=== PATIENT | male | born 1965 | race African-American/Black ===

== ENCOUNTER 2022-09-22 14:08 | Emergency (ER) | payer OTHER ==
[~2022-09-22] VITALS: Ht 172.7 cm; Wt 80.0 kg
[2022-09-22 14:17] VITALS: BP 145/86
[2022-09-22] MEDS ORDERED: CYCL10TA21 MT (17:45)
[2022-09-22] MEDS ORDERED: KETOROLAC 60MG/2ML VIAL IM ONE (17:45)
[2022-09-22] MEDS ORDERED: NAPR500T7 MT (17:45)
== END 2022-09-22 18:39 | disposition home or self-care (01) ==
LOC: ER 14:38
DX: M25.512 Pain in left shoulder (principal); I10 Essential (primary) hypertension
CPT/HCPCS: 99281; J1885

== ENCOUNTER 2024-10-21 21:19 | Emergency (ER) | payer SELFPAY ==
[~2024-10-21] VITALS: Ht 175.3 cm; Wt 82.0 kg
[~2024-10-21 21:19] MED LIST: CYCL10TA21 MT; NAPR-1486 MT
[2024-10-21 21:26] VITALS: O2SAT 98
[2024-10-21] MEDS: LIDOCAINE 5% PATCH TOP SCH (22:43)
[2024-10-21] MEDS: KETOROLAC 15MG/ML VIAL IM ONE (22:45)
[2024-10-21] MEDS ORDERED: NAPR-1176 MT (23:32)
[2024-10-21] MEDS ORDERED: CYCL5TAB3 MT (23:32)
[2024-10-21] MEDS ORDERED: LIDO700A15 TP (23:32)
[2024-10-21 23:41] VITALS: BP 138/87; PULSE 80; RESP 18; TEMP 37.1; O2SAT 98
== END 2024-10-21 23:42 | disposition home or self-care (01) ==
LOC: ER 21:19
DX: M54.50 Low back pain, unspecified (principal); I10 Essential (primary) hypertension; Z79.1 Long term (current) use of non-steroidal anti-inflammatories (NSAID)
CPT/HCPCS: 99283; 96372; J1885

== ENCOUNTER 2025-07-03 16:03 | Emergency (ER) | payer MEDICAID ==
[~2025-07-03] VITALS: Ht 175.3 cm; Wt 82.0 kg
[~2025-07-03 16:03] MED LIST changes: +CYCL5TAB3 MT; +LIDO-53 TP; +NAPR-1176 MT
[2025-07-03 16:47] VITALS: O2SAT 98
[2025-07-03 20:28] LABS: BASOPHILS % 1.0 % (0.0-2.0); EOSINOPHILS % 3.1 % (0.0-5.0); HEMATOCRIT. 40.2 % (42.0-52.0); HEMOGLOBIN. 12.9 g/dL (14.0-18.0); LYMPHOCYTES % 39.1 % (20.0-50.0); MEAN PLATELET VOLUME 8.7 fl (7.4-10.4); MONOCYTES % 10.1 % (2.0-8.0); NEUTROPHILS % 46.7 % (40.0-76.0); PLATELET 227 x1000/uL (130-400); RED BLOOD CELL COUNT 4.48 mill/uL (4.7-6.1); RED CELL DISTRIBUTION WIDTH 13.1 % (11.6-14.6)
[2025-07-03 20:47] LABS: CREATININE 0.8 mg/dL (0.6-1.3); UREA NITROGEN BLOOD 8 mg/dL (9-23)
[2025-07-03 21:28] VITALS: BP 132/74; PULSE 74; RESP 18; TEMP 37; O2SAT 97
== END 2025-07-03 21:38 | disposition home or self-care (01) ==
LOC: ER 16:03
DX: R60.0 Localized edema (principal); I10 Essential (primary) hypertension; R06.02 Shortness of breath; Z79.899 Other long term (current) drug therapy
CPT/HCPCS: 36415; 71045; 80048; 83880; 85025; 99284

== ENCOUNTER 2025-08-12 10:25 | Emergency (ER) | payer MEDICAID, OTHER ==
[~2025-08-12] VITALS: Ht 172.7 cm; Wt 85.0 kg
[2025-08-12 10:51] VITALS: O2SAT 98
[2025-08-12] MEDS ORDERED: LIDO-53 TP (12:58)
[2025-08-12] MEDS: KETOROLAC 30MG/ML VIAL IM ONE (13:13)
[2025-08-12 13:14] VITALS: BP 148/82; PULSE 76; RESP 16; TEMP 36.7; O2SAT 98
== END 2025-08-12 13:17 | disposition home or self-care (01) ==
LOC: ER 10:25
DX: M25.521 Pain in right elbow (principal); I10 Essential (primary) hypertension; Z79.899 Other long term (current) drug therapy
CPT/HCPCS: 99284; 73030; 73090; 96372; J1885